=== PATIENT | male | born 1980 | race African-American/Black ===

== ENCOUNTER 2023-06-21 13:00 | Observation (INO) ==
--- NOTE | 2023-06-21 10:24 | RAD ---
EXAM:AP chestHISTORY:Preop ankle surgeryCOMPARISON:None availableFINDINGS:Heart size is normal. Marjorie are normal. Lung bell are clear. No pleural effusions are identified. Bony thorax is unremarkable.IMPRESSION:No significant abnormality identifiedTHIS IS AN ELECTRONICALLY VERIFIED FINAL [id number]/21/2023 10:21 AM - Electronically signed by Reyes Post MD
[2023-06-21 10:36] VITALS: BMI 27.2
[~2023-06-21 13:00] MED LIST: ANCEF VIAL 1 GRAM ONE; BRIDION ONE; DIPRIVAN VIAL 20 ML ONE; FENTANYL VIAL INJ 100 mcg ONE; LR 1,000 ML IV 1,000 ML IV ONE; NAROPIN 0.75% EPI ONE; NS 100 ML IV 100 ML ONE; VERSED ONE; ZEMURON 100 MG VIAL ONE
[2023-06-21] MEDS ORDERED: BARHEMSYS INJ IVP PRN (13:34)
[2023-06-21] MEDS ORDERED: BENADRYL INJ 50 MG VIAL IVP PRN (13:34)
[2023-06-21] MEDS ORDERED: ZOFRAN INJ 4 MG VIAL IVP PRN ×2 (13:34→16:27)
[2023-06-21] MEDS ORDERED: REGLAN INJ 10 MG VIAL IVP PRN (13:34)
[2023-06-21] MEDS ORDERED: SUPRANE ONE (13:45)
[2023-06-21] MEDS ORDERED: MARCAINE 0.5% ONE (13:59)
[2023-06-21] MEDS ORDERED: FENTANYL VIAL INJ 100 mcg ONE (15:12)
[2023-06-21] MEDS ORDERED: ZOFRAN INJ 4 MG VIAL ONE (15:29)
[2023-06-21] MEDS ORDERED: LR 1,000 ML IV 1,000 ML IV ONE (15:40)
[2023-06-21] MEDS ORDERED: DILAUDID INJ ONE (16:23)
[2023-06-21] MEDS: DILAUDID INJ IVP PRN ×6 (16:24→21:45)
[2023-06-21] MEDS ORDERED: PERCOCET TAB 5/325 MG PO PRN (16:27)
[2023-06-21] MEDS ORDERED: TYLENOL 325 MG TAB PO PRN (16:27)
[2023-06-21] MEDS ORDERED: DILAUDID INJ IVP PRN ×2 (16:28→16:44)
[2023-06-21] MEDS ORDERED: TORADOL 30 MG VIAL ONE (16:32)
[2023-06-21] MEDS: BENADRYL INJ 50 MG VIAL IVP PRN ×2 (17:35→21:46)
[2023-06-21 20:03] VITALS: RESP 20
[2023-06-21] MEDS: PERCOCET TAB 5/325 MG PO PRN (20:03)
[2023-06-21] MEDS ORDERED: COLACE CAP 100 MG PO SCH (21:00)
[2023-06-21] MEDS: ANCEF VIAL 1 GRAM IVP SCH (21:43)
[2023-06-22] MEDS: BENADRYL INJ 50 MG VIAL IVP PRN ×3 (02:41→13:22)
[2023-06-22] MEDS: DILAUDID INJ IVP PRN ×3 (02:41→13:45)
[2023-06-22] MEDS: PERCOCET TAB 5/325 MG PO PRN ×3 (04:19→15:00)
[2023-06-22 05:06] LABS: BLOOD UREA NITROGEN 16 mg/dL (7-18); CALCIUM 8.1 mg/dL (8.5-10.1); CARBON DIOXIDE 28.3 mmol/L (21-32); CHLORIDE 103 mmol/L (98-107); COR NA(FOR HYPERGLY) 140 mmol/L (136-145); CREATININE 1.38 mg/dL (0.70-1.30); GLUCOSE 126 mg/dL (65-99); POTASSIUM 3.8 mmol/L (3.5-5.1); SODIUM 139 mmol/L (136-145); eGFR NON BLACK RACES > 60 (>60)
[2023-06-22] MEDS: ANCEF VIAL 1 GRAM IVP SCH (05:17)
--- NOTE | 2023-06-22 07:46 | NOTE.SOAP ---
Soap Note Note for Day of Date of Exam: 06/22/23 Subjective Data Subjective Data: POD1 TAR, Left ankle. Patient doing okay this am, he did not sleep due to pain. He said he's experiencing pain specifically in the ankle joint rating it an 11/10. Pain is managed with pain medication. No onset of symptoms overnight such as calf pain, SOB, nausea, vomiting, fever, chills, or dizziness Objective Data Objective Data: Dressings are c/d/i without strikethrough Neurovascular status intact to LLE (CFT<3s) Patient able to move toes Assessment Assessment: Total Ankle Replacement, Left Ankle (DOS: 06/21/23) Osteoarthritis, left ankle Plan Plan: Patient seen this am, explained the post op protocol in detail. Pain will gradually go down the next couple of days. I loosed his TIFFANIE wraps for some alleviation. Patient to be NWB to the LLE with crutches or walker. Pending PT eval. Pain medication is on schedule- would like to transition patient to PO only to see how pain is tolerated. DVT ppx on schedule. Patient is indifferent about going home or staying. I would like to see how pain is tolerated, if patient doing okay today he can be discharged. Please discharge patient with scripts and post operative instructions
[2023-06-22] MEDS ORDERED: LOVENOX INJ 40 MG SYR SC SCH (09:00)
[2023-06-22 12:13] VITALS: BP 128/79; PULSE 79; TEMP 99; O2SAT 97
[2023-06-22] MEDS ORDERED: NS 100 ML IV 100 ML ONE (13:30)
[2023-06-22] MEDS ORDERED: ANCEF VIAL 1 GRAM 2 G in NS 100 ML IV 100 ML IV SCH (14:00)
== END 2023-06-22 16:00 | disposition home or self-care (01) ==
LOC: MED/SURG → EDUNIT# 13:00
PROVIDERS: ADMIT Podiatrist; ATTEND Obstetrics & Gynecology Obstetrics
DX: M19.072 Primary osteoarthritis, left ankle and foot; M12.572 Traumatic arthropathy, left ankle and foot